=== PATIENT | female | born 1980 | race Caucasian/White ===

== ENCOUNTER 2017-06-03 09:48 | Emergency (ER) | payer OTHER ==
[~2017-06-03] VITALS: Ht 172.7 cm; Wt 64.9 kg
[~2017-06-03 09:48] MED LIST: LIDOPIN28 GM TP; NAPROXEN500 MG PO; TRAMADOL HCL50 MG PO; VALIUM5 MG PO
[2017-06-03] MEDS ORDERED: PERCOCET 5-3251 EACH PO (16:44)
== END 2017-06-03 17:12 | disposition home or self-care (01) ==
LOC: ED 09:48
DX: O03.80 Unspecified complication following complete or unspecified spontaneous abortion (principal); N83.201 Unspecified ovarian cyst, right side; Z88.2 Allergy status to sulfonamides
CPT/HCPCS: 76801; 76817; 80053; 81001; 83690; 84702; 84703; 85025; 86900; 86901; 96374; 96376; 99284; J1170

== ENCOUNTER 2017-06-19 01:17 | Day surgery (SDC) | payer OTHER ==
[~2017-06-19] VITALS: Ht 172.7 cm; Wt 64.4 kg
[~2017-06-19 01:17] MED LIST changes: +PERCOCET 5-3251 EACH PO
--- NOTE | 2017-06-19 04:59 | NUR ---
06/19/17 0459 Rossana Rangel 0454- PT ARRIVES TO PACU WITH ORAL AIRWAY IN PLACE.
--- NOTE | 2017-06-19 05:40 | NUR ---
PT TO CCU RM 127 FROM PACU, FULL BEDSIDE REPORT GIVEN BY ARIEL HART. PT ABLE TO TRANSFER FROM STRECHER TO BED ON HER OWN. IV SITES INTACT, NO REDNESS OR SWELLING NOTED, FLUSH EASILY. PT TEARFUL AND EMOTIONAL AT THIS TIME. PT C/O BEING COLD, WARM BLANKETS GIVEN.
--- NOTE | 2017-06-19 06:50 | NUR ---
PT DUE TO VOID, STATES "I DON'T FEEL LIKE I NEED TO YET, AND IT HURTS TO MOVE". PT DROWSY AND ORIENTED X4, TALKATIVE AND APPROPRIATE, SO AT BEDSIDE. PT PABLITO PO WATER AND JUICE. PT CURRENTLY RATES PAIN AT 5/10, 800 MG PO MOTRIN GIVEN.
--- NOTE | 2017-06-19 08:58 | NUR ---
PT UP TO BATHROOM VOIDED AND BACK TO BED. CONTIOUES TO BE VERY PAINFUL WITH ACTIVITY. MEDICATED WITH PO MEDICATIONS. PT CONTIOUES TO VENT ABOUT WHAT HAS HAPPENED WITH THIS PREGENCY.
--- NOTE | 2017-06-19 09:44 | NUR ---
PT ATE BKF WELL PABLITO-WELL SO FAR THIS MORNING. PT HAS BEEN UP TO THE BATHROOM TWICE SO FAR THIS MORNING, AMBULATES WELL BUT HAS PAIN WITH AMBULATION. ICE PACKS TO INCISION TO EASY AND HELP WITH PAIN.
[2017-06-19] MEDS ORDERED: IBUPROFEN800 MG PO (10:44)
[2017-06-19] MEDS ORDERED: PERCOCET 5-3251 EACH PO (10:45)
--- NOTE | 2017-06-19 10:45 | NUR ---
PT DC'D TO HOME AT THIS TIME, ALL QUESTIONS ANSWERED AT THIS TIME.
[2017-06-19] MEDS ORDERED: PRENATAL FORMU1 EAC3 PO (10:56)
--- NOTE | 2017-06-21 12:37 | OR ---
[facility] [address] [place], [place] [address] Signed DATE OF SERVICE: 06/19/2017 PREOPERATIVE DIAGNOSIS: Probable ectopic . POSTOPERATIVE DIAGNOSIS: Ruptured right tubal . PROCEDURE: Laparoscopic right salpingectomy. SURGEON: Stanislaw Enriquez MD. ANESTHESIA: General. ESTIMATED BLOOD LOSS: 50 mL. Most of this already free in the pelvis. SPECIMEN: Right tubal and right fallopian tube and tubal . DRAINS: None. FINDINGS: Vagina, minimal blood; cervix, closed. Uterus, normal size and shape. The pelvis was filled with moderate amount of dark free blood and clots. The anterior cul-de-sac was free of any adhesions. The posterior cul-de-sac was free of any adhesions. The left tube and ovary were absent. There were some filmy adhesions from the sigmoid to the left pelvic sidewall in t he area of previous tube and ovary. The right tube was dilated and dark blood-filled along its entire length, and there was blood and clots coming out of the fimbriated end. The right ovary showed small hemorrhagic cyst. Otherwise, normal. No adhesions. COMPLICATIONS: None. DESCRIPTION OF PROCEDURE: The patient was brought to the operating room, placed in the supine position. After adequate general anesthesia was obtained, the patient was placed in the dorsal lithotomy position. Prepped and draped in usual gerardo rile fashion. Sponge stick was placed in the vagina and Gómez catheter was placed in the bladder. Attention was then drawn to the abdomen. A small skin incision was made just above the umbilicus in the previous surgical scar after injecting the area with 0.25% Marcaine. Subcutaneous tissue was dissected with Metzenbaum scissors, then the fascia was identified, grasped with hemostats, elevated and nicked with Metzenbaum scissors and extended in transverse fashion using zenbaum Electronically Signed By: STANISLAW ENRIQUEZ MD 06/21/17 1237 PATIENT NAME: DIMITRI SHAIKH OPERATIVE REPORT DATE OF : 78 PHYSICIAN: STANISLAW ENRIQUEZ MD REPORT #: [id number] REPORT IS CONFIDENTIAL AND NOT TO BE RELEASED WITHOUT AUTHORIZATION [facility] [address] [place], [place] [address] Signed scissors. Retention stitches of 0 Vicryl suture were placed above and below the incision. Finger dissection was used to open the peritoneum. An S retractor was inserted into the incision and spun in 360 degree fashion confirming entrance into the abdomen. The S retractor was removed and a Nalini cannula and sleeve entered the abdomen and the sleeve tied in place using retention stitches. Trocar was removed and the laparoscope with video attachment entered the abdomen under direct visualization. The above findings were noted. Two 5 mm ports were placed, one left lateral and one right lateral just below the level of the umbilicus. For each one, abdominal wall was transilluminated to avoid any vessels. 0.25% Marcaine was injected into the area and a small skin incision was made. The bladed trocar and sleeves were then used to enter the abdomen under direct visualization. The trocars were removed and blunt graspers inserted. The entire pelvis was carefully inspected. The above findings confirmed. Suction sql database administrator was then used to irrigate and suction the blood and clots out of the pelvis so that the tube could be better visualized. The entire length of the tube was swollen and filled with blood and with some blood coming out the fimbriated end. It was decided that the tube could not be saved, so the LigaSure bipolar [place] forceps were used to cauterize the mesosalpinx just below the fallopian tube starting at the fimbriated end and continuing down the length of the tube until reaching just before the uterine horn and then the fallopian tube was then cauterized in two places and cut away from the uterus. While this was being done, the tube was held up away from the sidewall with blunt graspers. A 5 mm scope was then placed in the lateral side and the Endo pouch placed through the midline incision and the fallopian tube with tubal was placed in the bag and the bag brought out through the midline incision by removing the 10 mm sleeve. The sleeve was placed back in the same fashion it was placed originally and the 10 mm scope placed back through the midline incision. The entire pelvis was again irrigated copiously and the fluid suctioned out. The area of dissection was noted to have good hemostasis. No other clots or any gestational tissue were seen. The pelvis was clear. At this point, all instruments were removed, the gas allowed to escape, and the final sleeve removed. The midline incision and fascia was closed using running stitch of 0 Vicryl suture with a 2 retention stitches tied together for further support. The 3 skin incisions were closed using subcuticular stitches of 4-0 Vicryl. The Gómez catheter and vaginal sponge were removed. The patient tolerated the procedure well, went to recovery room in good condition. All sponge, needle, and instrument count were correct at the en d of the procedure. MD DAVID Garner/[facility] Electronically Signed By: STANISLAW ENRIQUEZ MD 06/21/17 1237 PATIENT NAME: DIMITRI SHAIKH OPERATIVE REPORT DATE OF : 78 PHYSICIAN: STANISLAW ENRIQUEZ MD REPORT #: [id number] REPORT IS CONFIDENTIAL AND NOT TO BE RELEASED WITHOUT AUTHORIZATION [facility] [address] [facility] [place], [place] [address] Signed /[id number] Electronically Signed By: STANISLAW ENRIQUEZ MD 06/21/17 1237 PATIENT NAME: DIMITRI SHAIKH OPERATIVE REPORT DATE OF : 78 PHYSICIAN: STANISLAW ENRIQUEZ MD REPORT #: [id number] REPORT IS CONFIDENTIAL AND NOT TO BE RELEASED WITHOUT AUTHORIZATION
== END 2017-06-19 10:45 | disposition home or self-care (01) ==
LOC: ED 01:17 → DS 03:18 → DSVR 03:18 → CCU 06:00 → DS 10:45
PROVIDERS: General Practice
PROC: 0UB54ZZ Excision of Right Fallopian Tube, Percutaneous Endoscopic Approach (ICD-10-PCS; 2017-06-19)
PROC: 10T24ZZ Resection of Products of Conception, Ectopic, Percutaneous Endoscopic Approach (ICD-10-PCS; principal; 2017-06-19 03:19)
DX: O00.10 Tubal pregnancy without intrauterine pregnancy (principal); K28.9 Gastrojejunal ulcer, unspecified as acute or chronic, without hemorrhage or perforation; Z98.890 Other specified postprocedural states; Z88.2 Allergy status to sulfonamides
CPT/HCPCS: 00840; 80048; 84702; 85025; 86850; 86900; 86901; 96374; 96375; 99285; J0330; J1100; J1170; J1885; J2250; J2270; J2405; J2704; J2710; J2765; J3010; J7030; J7120

== ENCOUNTER 2023-09-25 09:32 | Emergency (ER) | payer BC, OTHER ==
[~2023-09-25] VITALS: Ht 172.7 cm; Wt 64.4 kg
[~2023-09-25 09:32] MED LIST changes: +IBUPROFEN800 MG PO; +PRENATAL FORMU1 EAC3 PO
--- OUTSIDE RECORDS SUMMARY | 2023-09-25 09:34 | XMS ---
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 PHONE: [phone] [facility] Current PHONE: [phone] Corey has no Care Guidelines for this patient. Yazmin VISIT COUNT (12 MO.) Aris Chávez TOTAL 2 NOTE: Visits indicate total known visits. ED/UCC VISIT TRACKING (12 MO.) 09/25/2023 09:33 [facility] TYPE: Emergency COMPLAINT: - POST SURGERY PAIN L LEG 04/25/2023 09:16 [facility] [place] TYPE: Emergency COMPLAINT: - KNEE PAIN DIAGNOSES: - Allergy status to sulfonamides - Fall into hole, initial encounter - Pain in left knee - Sprain of unspecified site of left knee, initial encounter - Unspecified dislocation of left patella, initial encounter INPATIENT VISIT TRACKING (12 MO.) No inpatient visits to display in this time frame [email or web address]
[2023-09-25] MEDS ORDERED: OXYCODONE-ACET1 EAC1 PO (09:49)
[2023-09-25] MEDS ORDERED: HYDROXYZINE HCL25 MG PO (09:49)
[2023-09-25] MEDS ORDERED: ONDANSETRON ODT8 MG PO (10:49)
[2023-09-25] MEDS ORDERED: DILAUDID2 MG PO (10:49)
[2023-09-25 11:30] VITALS: BP 119/77
== END 2023-09-25 11:28 | disposition home or self-care (01) ==
LOC: ED 09:32
DX: G89.18 Other acute postprocedural pain (principal); M25.562 Pain in left knee; Z88.2 Allergy status to sulfonamides; Z79.899 Other long term (current) drug therapy
CPT/HCPCS: 96372; 99283; A9270; J1170; J1885